=== PATIENT | female | born 1990 | race Caucasian/White ===

== ENCOUNTER 2018-06-15 14:28 | Outpatient (CLI) | payer MEDICAID | END 2018-06-15 15:15 | disposition home or self-care (01) | LOC: LC 14:28 | PROVIDERS: ATTEND Obstetrics & Gynecology | PROC: 4A1HXCZ Monitoring of Products of Conception, Cardiac Rate, External Approach (ICD-10-PCS; principal; 2018-06-15) | DX: O24.419 Gestational diabetes mellitus in pregnancy, unspecified control (principal); Z3A.34 34 weeks gestation of pregnancy | CPT/HCPCS: 59025 ==

== ENCOUNTER 2018-07-09 02:38 | Inpatient (IN) | payer MEDICAID ==
[2018-07-09 03:18] LABS: APPEARANCE,URINE TURBID; BILIRUBIN,URINE NEGATIVE (NEGATIVE); COLOR,URINE YELLOW; GLUCOSE, URINE NEGATIVE (NEGATIVE); KETONES,URINE NEGATIVE (NEGATIVE); LEUKOCYTE ESTERASE,URINE NEGATIVE (NEGATIVE); NITRITE,URINE NEGATIVE (NEGATIVE); PROTEIN,URINE NEGATIVE (NEGATIVE); URINE SPECIFIC GRAVITY 1.016; UROBILINOGEN,URINE NEGATIVE mg/dL (<2.0)
[2018-07-09 03:26] LABS: URINE AMPHETAMINES SCREEN NEGATIVE; URINE BARBITURATES SCREEN NEGATIVE; URINE BENZODIAZEPINES SCREEN NEGATIVE; URINE COCAINE SCREEN NEGATIVE; URINE MARIJUANA (THC) SCREEN NEGATIVE; URINE METHADONE SCREEN NEGATIVE; URINE PHENCYCLIDINE SCREEN NEGATIVE
[2018-07-09] MEDS ORDERED: RINGERS SOLUTION,LACTATED 1,000 ML IV PRN (03:37)
[2018-07-09 03:42] LABS: ABSOLUTE EOSINOPHILS # (AUTO) 0.1 10^3/uL (0.0-0.6); ABSOLUTE LYMPHOCYTES (AUTO) 2.3 10^3/uL (0.5-4.7); ABSOLUTE MONOCYTES (AUTO) 0.8 10^3/uL (0.1-1.4); ABSOLUTE NEUT (AUTO) 6.3 10^3/uL (1.7-8.2); BASOPHILS % (AUTO) 0.2 % (0-2); EOSINOPHILS % (AUTO) 0.6 % (0-6); HEMATOCRIT 31.5 % (36.0-47.0); HEMOGLOBIN 10.5 g/dL (12.0-15.5); LYMPHOCYTES % (AUTO) 24.4 % (13-45); MEAN CORPUSCULAR HEMOGLOBIN 28.1 pg (27.0-33.4); MEAN CORPUSCULAR HGB CONC 33.4 g/dL (32.0-36.0); MEAN CORPUSCULAR VOLUME 84 fl (80-97); MONOCYTES % (AUTO) 8.8 % (3-13); PLATELET COUNT 189 10^3/uL (150-450); RED BLOOD COUNT 3.75 10^6/uL (3.72-5.28); TOTAL CELLS COUNTED % (AUTO) 100 %; WHITE BLOOD COUNT 9.5 10^3/uL (4.0-10.5)
[2018-07-09] MEDS ORDERED: LIDOCAINE 1% INJ-PF (10 MG/ML) 30 ML SDV ONE (03:45)
[2018-07-09] MEDS ORDERED: MISOPROSTOL 0.2 MG TABLET ONE (03:45)
[2018-07-09] MEDS ORDERED: OXYTOCIN/NORMAL SALINE 20 UNIT/1,000 ML RTUINJ ONE (03:46)
--- NOTE | 2018-07-09 04:55 | Admission Physical ---
Datetime Report Generated by CPN: 07/09/2018 04:55 CURRENT ADMISSION Chief Complaint: Uterine Contractions; Suspected Ruptured Membranes Indication for Induction: Not Applicable Admit Impression : Term, Intrauterine ; Active Labor Admit Plan: Admit to Unit; Initiate Labor Protocol ALLERGIES Medication Allergies: No Medication Allergies: No Known Allergies (07/09/2018) Latex: No Latex Allergies OBSTETRICAL HISTORY EDC: 07/26/2018 00:00 : 2 Para: 1 Term: 1 : 0 SAB: 0 IAB: 0 Ectopic: 0 Livin Cesareans: 0 VBACs: 0 Multiple Births: 0 Gestational Diabetes: Yes Rh Sensitization: No Incompetent Cervix: No CASA: No Infertility: No ART Treatment: No Uterine Anomaly: No IUGR: No Hx Previous C/S: No Macrosomia: No Hx Loss/Stillborn: No PIH: No Hx : No Placenta Previa/Abruption: No Depression/PP Depression: No PTL/PROM: No Current Procedures: Ultrasound Obstetrical History Comments: G1: 2016 38.1 wk male 6 lb 4 oz G2: Current, GDM SEE RECORDS Alcohol: No Marijuana : No Cocaine: No Other Illicit Drugs: No Cigarettes: Never Smoker. [id number] MEDICAL HISTORY Diabetes: Yes Diabetes Type: Gestational Diabetes Blood Transfusion: No Pulmonary Disease (Asthma, TB): No Breast Disease: No Hypertension: No Safety Inspector Surgery: No Heart Disease: No Hosp/Surgery: Yes Autoimmune Disorder: No Anesthetic Complications: No Kidney Disease: Yes Abnormal Pap Smear: No Neuro/Epilepsy: No Psychiatric Disorders: No Other Medical Diseases: No Hepatitis/Liver Disease: No Significant Family History: No Varicosities/Phlebitis: Yes Trauma/Violence : No Thyroid Dysfunction: No Medical History Comments: varicose veins in legs; childbirth INFECTIOUS HISTORY Gonorrhea: No Genital Herpes: No Chlamydia: Yes Tuberculosis: No Syphilis: No Hepatitis: No HIV/AIDS Exposure: No Rash or Viral Illness: No Infectious History Comments: chlamydia PHYSICAL EXAM General: Normal HEENT: Normal Neurologic: Normal Thyroid: Normal Heart: Normal Lungs: Normal Breast: Normal Back: Normal Abdomen: Normal Genitourinary Exam: Normal Extremities: Normal DTRs: Normal Pelvic Type: Adequate Vital Signs: Reviewed; Within Normal Limits VAGINAL EXAM Dilatation: 4 Effacement: 90 Station: -1 MEMBRANES Pooling: Positive Membranes: Ruptured Amniotic Fluid Color: Clear FETUS A EGA: 37.4 Monitoring: External US FHR- Baseline: 120 Variability: Moderate 6-25bpm Accelerations: 15X15 Decelerations: None FHR Category: Category I Estimated Weight (gm): 3200 Presentation: Vertex PLANS FOR LABOR AND DELIVERY Pain Management: Epidural Feeding Preference: Breast Benefit of Breast Feed Discussed: Yes Circumcision: N/A INFORMED CONSENT Signature: with User ID: [email or web address]
[2018-07-09] MEDS ORDERED: OXYTOCIN 10 UNIT/ML VIAL ONE (04:56)
[2018-07-09] MEDS ORDERED: PROMETHAZINE HCL INJ 25 MG/1 ML VIAL IV PRN (04:59)
[2018-07-09] MEDS ORDERED: ACETAMINOPHEN WITH CODEINE #3 TABLET PO PRN (04:59)
[2018-07-09] MEDS ORDERED: MAGNESIUM HYDROXIDE SUSP 30 ML UDCUP PO PRN (04:59)
[2018-07-09] MEDS ORDERED: NA PHOS,M-B/NA PHOS,DI-BA (ADULT) 133 ML ENEMA PR PRN (04:59)
[2018-07-09] MEDS ORDERED: DIBUCAINE 1% OINTMENT 28 GM TP PRN (04:59)
[2018-07-09] MEDS ORDERED: PROMETHAZINE HCL 25 MG SUPP.RECT PR PRN (04:59)
[2018-07-09] MEDS ORDERED: ZOLPIDEM TARTRATE 5 MG TABLET PO PRN (04:59)
[2018-07-09] MEDS ORDERED: ACETAMINOPHEN 650 MG SUPP.RECT PR PRN (04:59)
[2018-07-09] MEDS ORDERED: PSEUDOEPHEDRINE HCL 30 MG TABLET PO PRN (04:59)
[2018-07-09] MEDS ORDERED: MEASLES,MUMPS&RUBELLA VACC/PF 0.5 ML VIAL SUBCUT PRN (04:59)
[2018-07-09] MEDS ORDERED: DIPH/PERTUSS(ACELL)/TETANUS VAC/PF 0.5 ML SYR (>=10YO) IM PRN (04:59)
[2018-07-09] MEDS ORDERED: DIPHENHYDRAMINE HCL 25 MG CAPSULE PO PRN (04:59)
[2018-07-09] MEDS ORDERED: PROMETHAZINE HCL 25 MG TABLET PO PRN (04:59)
[2018-07-09] MEDS ORDERED: GLYCERIN/WITCH HAZEL LEAF 1 EACH MED..PAD TP PRN (04:59)
[2018-07-09] MEDS ORDERED: OXYTOCIN/NORMAL SALINE 20 UNIT/1,000 ML RTUINJ IV PRN (04:59)
[2018-07-09] MEDS ORDERED: IBUPROFEN 800 MG TABLET ONE (05:25)
[2018-07-09] MEDS: IBUPROFEN 800 MG TABLET PO SCH ×3 (05:27→21:42)
--- NOTE | 2018-07-09 06:14 | Warning Signs in Babies ---
VOD Warning Signs Datetime Report Generated by [facility]: 07/09/2018 06:14 VOD#[id number] -Warning Signs in Babies: Needs to be viewed. (06/15/2018 14:40:Patty Paige RN)
[2018-07-09] MEDS ORDERED: ACETAMINOPHEN WITH CODEINE #3 TABLET ONE (06:31)
[2018-07-09] MEDS: ACETAMINOPHEN WITH CODEINE #3 TABLET PO PRN ×2 (06:34→17:29)
--- NOTE | 2018-07-09 07:21 | Delivery Summary ---
Del Sum A-C Datetime Report Generated by CPN: 07/09/2018 07:21 DELIVERY PERSONNEL DELIVERY PERSONNEL: [id number] Delivery Doctor:: Jessica Villegas MD Labor and Delivery Nurse:: Patty Paige RNmedicine and health service manager Nurse:: Jacquelyn Kingsley RN Urgent Care Nurse Practitioner/NEEDLE MOLDER: Nubia Ross, ST MATERNAL INFORMATION Delivery Anesthesia: None Medications After Delivery: Other-Please Comment Meds After Delivery Comment: Pitocin 20 units IM Estimated Blood Loss (ml): 200 Maternal Complications: Precipitous Labor (<3hrs); Abnormal Cord Length Complication Details: Short cord LABOR SUMMARY EDC: 07/26/2018 00:00 No. Babies in Womb: 1 Attempted: No Labor Anesthesia: None LABOR INFORMATION Reason for Induction: Not Applicable Onset of Labor: 07/09/2018 03:00 Complete Dilatation: 07/09/2018 04:39 Oxytocin: N/A Group B Beta Strep: negative Antibiotics # of Doses: 0 Antibiotics Time of Last Dose: n/a Name of Antibiotic Given: n/a Steroids Given: None Reason Steroids Not Administered: Not Applicable MEMBRANES Membranes Rupture Method: Spontaneous Rupture of Membranes: 07/09/2018 01:50 Length of Rupture (hr): 2.82 Amniotic Fluid Color: Clear Amniotic Fluid Amount: Small Amniotic Fluid Odor: Normal STAGES OF LABOR Stage 1 hr: 1 Stage 1 min: 39 Stage 2 hr: 0 Stage 2 min: 0 Stage 3 hr: 0 Stage 3 min: 3 Total Time in Labor hr: 1 Total Time in Labor min: 42 VAGINAL DELIVERY Episiotomy: None Laceration #1: Periurethral Laceration Extension #1: Second Degree Laceration Repair: Yes Laceration Repair Note: repair of labia minora and clitoral elizalde done with 3-0 chromic Sponge Count Correct: N/A Sharps Count Correct: N/A CSECTION DELIVERY Primary Indication: N/A Secondary Indication: N/A CSection Incidence: N/A Labor: N/A Elective: N/A CSection Incision: N/A BABY A INFORMATION Delivery Date/Time: 07/09/2018 04:39 Method of Delivery: Vaginal Born in Route : No : N/A Forceps: N/A Vacuum Extraction: N/A Shoulder Dystocia : No PRESENTATION/POSITION BABY A Presentation: Cephalic Cephalic Presentation: Vertex Vertex Position: Left Occipital Anterior Breech Presentation: N/A PLACENTA INFORMATION BABY A Placenta Delivery Time : 07/09/2018 04:42 Placenta Method of Delivery: Spontaneous Placenta Status: Delivered SCORES BABY A Heart Rate 1 min: >100 bpm Resp Effort 1 min: Good Cry Reflex Irritability 1 min: Cough or Sneeze or Pulls Away Muscle Tone 1 min: Active Motion Color 1 min: Blue/Pale Resuscitation Effort 1 min: Tactile Stimulation SCORE 1 MIN: 8 Heart Rate 5 min: >100 bpm Resp Effort 5 min: Good Cry Reflex Irritability 5 min: Cough or Sneeze or Pulls Away Muscle Tone 5 min: Active Motion Color 5 min: Body [place], Extremities Blue Resuscitation Effort 5 min: Tactile Stimulation SCORE 5 MIN: 9 INFANT INFORMATION BABY A Gestational Age at Delivery: 37.4 Gestational Status: Early Term- 37- 38.6 Weeks Outcome : Liveborn Infant Condition : Stable Sex: Female IDENTIFICATION BABY A Verification Date/Time: 07/09/2018 04:51 ID Band Number: [id number] Mother's Name Verified: Yes RN Verifying Infant: K. Chu, RN Additional Verifying Personnel: Carla Cifuentes, RN WEIGHT/LENGTH BABY A Birthweight (gm): 3210 Weight (lb): 7 Infant Weight (oz): 1 Length (in): 19.00 Infant Length (cm): 48.26 CORD INFORMATION BABY A No. Cord Vessels: 3 Nuchal Cord : N/A Cord Blood Taken: Yes-For Eval (Mom's Blood Type - or O+) Infant Suction: Mouth ASSESSMENT BABY A Complications: None Physical Findings at Delivery: Within Normal Limits Physical Findings- Other: See full nursery entomology professor Infant Respirations: Appears Normal Skin to Skin: Yes Skin to Skin Time (min): 20 Automatic Drilling Machine Operator/ALS Called : No Infant Care By: Barbara Kingsley RN Transferred To: Remains with Mother BABY B INFORMATION : N/A SIGNATURES Signature: with User ID: [email or web address]
[2018-07-09] MEDS: FERROUS SULFATE 325 MG TABLET PO SCH ×2 (09:51→17:27)
[2018-07-09] MEDS: SENNOSIDES/DOCUSATE 8.6-50 MG 1 EACH TABLET PO SCH (09:52)
[2018-07-09] MEDS: DOCUSATE SODIUM 100 MG CAPSULE PO SCH ×2 (09:52→17:27)
[2018-07-09] MEDS: FAMOTIDINE 20 MG TABLET PO SCH ×2 (09:52→21:41)
[2018-07-09] MEDS: PRENATAL VITAMIN W DHA CAPSULE PO SCH (09:52)
[2018-07-09] MEDS: BENZOCAINE/MENTHOL AEROSOL SPRAY 56 ML TOP PRN (17:33)
[2018-07-10] MEDS: IBUPROFEN 800 MG TABLET PO SCH ×3 (06:17→21:22)
[2018-07-10 08:51] LABS: HEMATOCRIT 33.9 % (36.0-47.0); HEMOGLOBIN 11.1 g/dL (12.0-15.5); MEAN CORPUSCULAR HEMOGLOBIN 28.2 pg (27.0-33.4); MEAN CORPUSCULAR HGB CONC 32.9 g/dL (32.0-36.0); MEAN CORPUSCULAR VOLUME 86 fl (80-97); PLATELET COUNT 197 10^3/uL (150-450); RED BLOOD COUNT 3.95 10^6/uL (3.72-5.28); RED CELL DISTRIBUTION WIDTH 15.2 % (11.5-14.0); WHITE BLOOD COUNT 9.9 10^3/uL (4.0-10.5)
[2018-07-10] MEDS: FERROUS SULFATE 325 MG TABLET PO SCH ×2 (09:15→17:36)
[2018-07-10] MEDS: PRENATAL VITAMIN W DHA CAPSULE PO SCH (09:15)
[2018-07-10] MEDS: SENNOSIDES/DOCUSATE 8.6-50 MG 1 EACH TABLET PO SCH (09:15)
[2018-07-10] MEDS: DOCUSATE SODIUM 100 MG CAPSULE PO SCH ×2 (09:15→17:36)
[2018-07-10] MEDS: FAMOTIDINE 20 MG TABLET PO SCH ×2 (09:15→21:22)
--- NOTE | 2018-07-10 10:50 | PDOC PROGRESS REPORT ---
Subjective-OB Progress Note for:: 07/10/18 Subjective: pt doing well, no concerns. She reports light bleeding, reg diet and voiding without difficulty. Physical Exam (OB) Vital Signs: Temp Pulse Resp BP Pulse Ox 98.2 F 86 16 118/74 96 07/10/18 08:31 07/10/18 08:31 07/10/18 08:31 07/10/18 08:31 07/10/18 08:31 Intake & Output 07/09/18 07/10/18 07/11/18 06:59 06:59 06:59 Intake Total 240 0 Balance 240 0 Weight 71.3 kg - Lochia Lochia Amount: Scant < 10 ml Lochia Color: Rubra/Red - Abdomen Description: Tender, Soft, Round Hernia Present: No Fundal Description: Firm, Midline Fundal Height: u/u - u/2 Objective-Diagnostic Laboratory: 07/10/18 07:53 07/10/18 07/10/18 07:53 07:53 WBC 9.9 RBC 3.95 Hgb 11.1 L Hct 33.9 L MCV 86 MCH 28.2 MCHC 32.9 RDW 15.2 H Plt Count 197 Blood Type AB NEGATIVE Assessment and Plan(PN) - Assessment and Plan (1) Insufficient care Qualifiers: Trimester: unspecified trimester Qualified Code(s): O09.30 - Supervision of with insufficient care, unspecified trimester Is this a current diagnosis for this admission?: Yes (2) Normal vaginal delivery Is this a current diagnosis for this admission?: Yes - Time Spent with Patient Time with patient: Less than 15 minutes Medications reviewed and adjusted accordingly: Yes - Disposition Anticipated Discharge: Home Within: within 24 hours
[2018-07-11] MEDS: IBUPROFEN 800 MG TABLET PO SCH ×2 (05:58→13:25)
[2018-07-11 08:40] VITALS: BP 116/66
[2018-07-11] MEDS: BENZOCAINE/MENTHOL AEROSOL SPRAY 56 ML TOP PRN (08:49)
[2018-07-11] MEDS: FAMOTIDINE 20 MG TABLET PO SCH (09:49)
[2018-07-11] MEDS: FERROUS SULFATE 325 MG TABLET PO SCH (09:49)
[2018-07-11] MEDS: SENNOSIDES/DOCUSATE 8.6-50 MG 1 EACH TABLET PO SCH (09:49)
[2018-07-11] MEDS: PRENATAL VITAMIN W DHA CAPSULE PO SCH (09:49)
[2018-07-11] MEDS: DOCUSATE SODIUM 100 MG CAPSULE PO SCH (09:49)
[2018-07-11] MEDS: ACETAMINOPHEN WITH CODEINE #3 TABLET PO PRN (09:54)
--- NOTE | 2018-07-11 12:53 | PDOC PROGRESS REPORT ---
Subjective-OB Progress Note for:: 07/11/18 Subjective: PP Day #2, doing well, Physical Exam (OB) Vital Signs: Temp Pulse Resp BP Pulse Ox 97.9 F 88 16 116/66 96 07/11/18 08:19 07/11/18 08:19 07/11/18 08:19 07/11/18 08:00 07/11/18 08:19 Intake & Output 07/10/18 07/11/18 07/12/18 06:59 06:59 06:59 Intake Total 240 600 200 Balance 240 600 200 - General General Appearance: Appears well, Alert In distress: None - PIH/Pre-Eclampsia Headache: Absent Epigastric Pain: No Visual Changes: No - Lochia Lochia Amount: Scant < 10 ml Lochia Color: Rubra/Red - Abdomen Description: Tender, Soft Hernia Present: No Fundal Description: Firm, Midline Fundal Height: u/u - u/2 - Respiratory Respiratory Status: No respiratory distress - Genitourinary Female External exam: Normal Lochia: None Genitourinary Note: voiding - Extremities Upper extremity: Normal inspection Lower extremities: Normal inspection - Neurological Cognition: Normal Orientation: AAOx4, Alert - Psychological Associated symptoms: Normal affect, Normal mood Objective-Diagnostic Laboratory: 07/10/18 07:53 Assessment and Plan(PN) - Assessment and Plan (1) Insufficient care Qualifiers: Trimester: unspecified trimester Qualified Code(s): O09.30 - Supervision of with insufficient care, unspecified trimester Is this a current diagnosis for this admission?: Yes (2) Normal vaginal delivery Is this a current diagnosis for this admission?: Yes (3) Qualifiers: Weeks of gestation: unspecified Qualified Code(s): Z34.90 - Encounter for supervision of normal , unspecified, unspecified trimester Is this a current diagnosis for this admission?: Yes (4) Type ab blood, rh negative Is this a current diagnosis for this admission?: Yes - Time Spent with Patient Time with patient: Less than 15 minutes - in stable condition Medications reviewed and adjusted accordingly: Yes - Disposition Anticipated Discharge: Home
--- NOTE | 2018-07-11 12:57 | PDOC DISCHARGE SUMMARY ---
Final Diagnosis Discharge Date: 07/11/18 - Final Diagnosis (1) Insufficient care Is this a current diagnosis for this admission?: Yes (3) Is this a current diagnosis for this admission?: Yes (4) Type ab blood, rh negative Is this a current diagnosis for this admission?: Yes Discharge Data - Discharge Medication Prescriptions: Ibuprofen [Motrin 800 mg Tablet] 800 mg PO Q8 PRN #45 tablet PRN Reason: Home Medications: Vit/Iron Fum/Folic AC [ Tablet] 1 each PO DAILY 12/10/15 Ibuprofen [Motrin 800 mg Tablet] 800 mg PO Q8 PRN #45 tablet 07/11/18 Reason(s) for Admission: Onset of Labor Procedures: Ultrasound Intrapartum Procedure(s): Spontaneous Vaginal Delivery Complication(s): Laceration-Perineal Laceration-Degree: 1st - Diagnosis Test Laboratory: Temp Pulse Resp BP Pulse Ox 97.9 F 88 16 116/66 96 07/11/18 08:19 07/11/18 08:19 07/11/18 08:19 07/11/18 08:00 07/11/18 08:19 07/09/18 07/09/18 07/10/18 02:46 03:33 07:53 RBC 3.75 3.95 Hgb 10.5 L 11.1 L Hct 31.5 L 33.9 L Urine Opiates Screen NEGATIVE - Discharge information/Instructions Discharge Activity: Balance Activity w/Rest, No Lifting Over 10 Pounds, Pelvic Rest Discharge Diet: As Tolerated, Regular Disposition: HOME, SELF-CARE Follow up with: [facility] in: 3, Weeks
== END 2018-07-11 14:51 | disposition home or self-care (01) | DRG 775 ==
LOC: LC 02:38 → LR 03:20 → 2S 07:00
PROVIDERS: ADMIT Obstetrics & Gynecology; ATTEND Obstetrics & Gynecology
PROC: 0KQM0ZZ Repair Perineum Muscle, Open Approach (ICD-10-PCS; principal; 2018-07-09)
PROC: 10E0XZZ Delivery of Products of Conception, External Approach (ICD-10-PCS; 2018-07-09)
PROC: 0UQMXZZ Repair Vulva, External Approach (ICD-10-PCS; 2018-07-09)
PROC: 4A1HXCZ Monitoring of Products of Conception, Cardiac Rate, External Approach (ICD-10-PCS; 2018-07-09)
PROC: 3E0234Z Introduction of Serum, Toxoid and Vaccine into Muscle, Percutaneous Approach (ICD-10-PCS; 2018-07-11)
DX: O62.3 Precipitate labor (principal); O24.429 Gestational diabetes mellitus in childbirth, unspecified control; O69.3XX0 Labor and delivery complicated by short cord, not applicable or unspecified; O26.893 Other specified pregnancy related conditions, third trimester; Z67.31 Type AB blood, Rh negative; O70.1 Second degree perineal laceration during delivery; O71.82 Other specified trauma to perineum and vulva; Z3A.37 37 weeks gestation of pregnancy; Z37.0 Single live birth; Z23 Encounter for immunization
CPT/HCPCS: 36415; 80307; 81005; 84112; 85025; 85027; 85461; 86592; 86850; 86870; 86900; 86901; 90715; J2590; J2790; J3490